=== PATIENT | female | born 1935 | race Caucasian/White ===

== ENCOUNTER 2020-11-21 19:21 | Emergency (ER) | payer MEDICARE, OTHER ==
[2020-11-21 20:17] LABS: HEMOGLOBIN 13.4 gm/dl (12.3-15.3); RED BLOOD COUNT 4.63 M/UL (4.00-5.10); WHITE BLOOD COUNT 4.4 K/UL (4.5-11.0)
[2020-11-21 20:49] LABS: BUN/CREATININE RATIO 18 (0-10)
== END 2020-11-21 22:35 | disposition home or self-care (01) ==
LOC: ER1 19:21
PROVIDERS: Physician Assistant
DX: R11.0 Nausea (principal); R53.81 Other malaise; R63.0 Anorexia; R35.0 Frequency of micturition; Z88.5 Allergy status to narcotic agent; Z20.822 Contact with and (suspected) exposure to COVID-19
CPT/HCPCS: 0240U; 36415; 71045; 80053; 81001; 82550; 82553; 83874; 84484; 85025; 87086; 93005; 99284

== ENCOUNTER 2021-01-02 10:28 | Emergency (ER) | payer MEDICARE, OTHER ==
[2021-01-02 11:10] LABS: HEMOGLOBIN 16.1 gm/dl (12.3-15.3); RED BLOOD COUNT 5.45 M/UL (4.00-5.10); WHITE BLOOD COUNT 5.4 K/UL (4.5-11.0)
[2021-01-02 11:43] LABS: BUN/CREATININE RATIO 19 (0-10)
[2021-01-02] MEDS ORDERED: LOPRESSOR 25 MG25 MG PO (13:21)
[2021-01-02] MEDS ORDERED: ELIQUIS5 MG PO (13:21)
== END 2021-01-02 15:34 | disposition home or self-care (01) ==
LOC: ER1 10:28
PROVIDERS: Emergency Medicine
DX: I48.91 Unspecified atrial fibrillation (principal); M54.9 Dorsalgia, unspecified; G89.29 Other chronic pain; Z88.5 Allergy status to narcotic agent; Z85.038 Personal history of other malignant neoplasm of large intestine; Z90.710 Acquired absence of both cervix and uterus; Z90.49 Acquired absence of other specified parts of digestive tract
CPT/HCPCS: 71045; 80053; 82550; 82553; 83874; 83880; 84439; 84443; 84484; 85025; 85610; 85730; 93005; 99284